=== PATIENT | male | born 1995 | race Hispanic/Latino ===

== ENCOUNTER 2024-03-22 03:04 | Emergency (ER) | payer MEDICARE, SELFPAY ==
[2024-03-22 03:07] VITALS: BP 166/105
[2024-03-22 03:32] VITALS: BMI 3808.9
--- NOTE | 2024-03-22 03:54 | ED.GENMED ---
History of Present Illness
<AUTUMN Cleaning - Last Filed: 03/22/24 06:21>
General
Chief Complaint: Extremity Pain (non-traumatic)
Source: patient
Exam Limitations: none
Time Seen by Provider: 03/22/24 03:24
Nursing documentation reviewed up to this point in time: agreed with
History of Present Illness
History of Present Illness:
Patient is a 29yo M w/ hx of back and shoulder arthritis who presents to the ED for hip pain x1 day. Reports waking up w/ hip pain yesterday which is unusual but pt did not think anything of it at first. He states pain got worse throughout the day.
He went to bed and woke up about an hour ago to pain radiating down arms and legs. Tried to get up and was unable to bear weight due to pain. Describes a constant deep soreness that is worse w/ movement. He states this pain is unlike anything he's
felt before. Has celebrex, tramadol, & nortriptyline for chronic pain which did not help this pain. 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 Follows w/ pain management. Denies any stiffness, numbness/tingling.
Admits to some recent constipation. Still having BM but feels like straining. Notes this is unusual since he has had loose bloody stool consistently since 14yo. States he was evaluated by GI and told it was hemorrhoids.
Review of Systems
<AUTUMN Cleaning - Last Filed: 03/22/24 06:21>
Review of Systems
Constitutional: Denies fever, fatigue or chills
Respiratory: Denies cough or trouble breathing
Cardiac: Denies chest pain or palpitations
ABD/GI: Reports constipated; Denies abdominal pain, nausea, vomiting or diarrhea
: Denies dysuria
Musculoskeletal: Reports joint pain and back pain
Neurological: Denies no symptoms, dizzy, headache or numbness
Phy Exam
<AUTUMN Cleaning - Last Filed: 03/22/24 06:21>
General Physical Exam
General Presentation: moderate distress
General age: appears stated age
General Skin: warm and dry
General Habitus: normal
General Mental: alert
Cardiovascular Exam
Cardiovascular Exam: regular rate/rhythm, no gallop and no murmur
Pulmonary Exam
Pulmonary Exam: lungs clear and no respiratory distress
Gastrointestinal Exam
Gastrointestinal Exam: normal bowel sounds, non tender, soft and non distended
Neurological Exam
Neurological Exam: alert, oriented x3, no motor deficits, no sensory deficits and speech normal
Musculoskeletal Exam
Musculoskeletal Exam: full ROM and other (very mild TTP of low back. Negative straight leg raise. 5/5 strength in B/L upper and lower extremities. Severe pain elicited when testing LE strength. )
Course
<Nikki Spaulding [facility] - Last Filed: 03/22/24 06:21>
Orders/Labs/Results
Orders:
Orders
03/22/24 04:08
C-Reactive Protein Urgent
Complete Blood Count/With Diff Urgent
Comprehensive Metabolic Panel Urgent
Lyme Progressive Urgent
Sed Rate [Erythrocyte Sed Rate] Urgent
03/22/24 05:27
Ketorolac [Toradol] 15 mg IV NOW STA
03/22/24 05:47
Bilat Hips, 3-4 view W/AP Pelvis [CR Hips FATIMAH w/wo Pel 3-4 Vw] Urgent
Comment:
Reason For Exam: pain
Include a pelvis x-ray?: Yes
03/22/24 06:19
Acetaminophen 1000MG/100Ml [Ofirmev] 1,000 mg in 100 ml IV ONCE
Acetaminophen IV Indication:: ED Narcotic Naive Pt-ONCE
03/22/24 06:49
Morphine Sulfate 4 mg IV NOW STA
Abnormal Lab Results
03/22/24
04:08
RBC 3.42 L 10^6/uL
(4.70-6.10)
Hgb 9.1 L g/dL
(13.0-18.0)
Hct 27.2 L %
(39.0-52.0)
MCV 79.5 L fL
(80.0-94.0)
MCH 26.6 L pg
(27.0-31.0)
MPV 10.6 H fL
(7.4-10.4)
Abs Immat Gran (auto) 0.2 H 10^3/uL
(0-0.05)
Absolute Monos (auto) 1.1 H 10^3/uL
(0.1-0.6)
Immature Gran % 1.9 H %
(0-0.5)
Monocytes % 11.4 H %
(1.7-9.3)
Chloride 109 H mmol/L
(98-107)
Carbon Dioxide 19 L mmol/L
(22-30)
BUN 26 H mg/dl
(9-20)
Glucose 111 H mg/dl
(70-99)
Total Bilirubin < 0.1 L mg/dl
(0.2-1.3)
Total Protein 6.2 L g/dl
(6.3-8.2)
03/22/24 04:08
03/22/24 04:08
Vital Signs
Initial and Last Documented VS:
Initial Vital Signs
Temp Pulse Resp BP Pulse Ox
98.1 F 104 20 166/105 99
03/22/24 03:07 03/22/24 03:07 03/22/24 03:07 03/22/24 03:07 03/22/24 03:07
Last Documented Vital Signs
Temp Pulse Resp BP Pulse Ox
98.1 F 94 21 141/90 99
03/22/24 03:07 03/22/24 06:30 03/22/24 06:30 03/22/24 06:00 03/22/24 03:07
<Marcos March, DO - Last Filed: 03/22/24 06:54>
Orders/Labs/Results
Orders:
Orders
03/22/24 04:08
C-Reactive Protein Urgent
Complete Blood Count/With Diff Urgent
Comprehensive Metabolic Panel Urgent
Lyme Progressive Urgent
Sed Rate [Erythrocyte Sed Rate] Urgent
03/22/24 05:27
Ketorolac [Toradol] 15 mg IV NOW STA
03/22/24 05:47
Bilat Hips, 3-4 view W/AP Pelvis [CR Hips FATIMAH w/wo Pel 3-4 Vw] Urgent
Comment:
Reason For Exam: pain
Include a pelvis x-ray?: Yes
03/22/24 06:19
Acetaminophen 1000MG/100Ml [Ofirmev] 1,000 mg in 100 ml IV ONCE
Acetaminophen IV Indication:: ED Narcotic Naive Pt-ONCE
03/22/24 06:49
Morphine Sulfate 4 mg IV NOW STA
Abnormal Lab Results
03/22/24
04:08
RBC 3.42 L 10^6/uL
(4.70-6.10)
Hgb 9.1 L g/dL
(13.0-18.0)
Hct 27.2 L %
(39.0-52.0)
MCV 79.5 L fL
(80.0-94.0)
MCH 26.6 L pg
(27.0-31.0)
MPV 10.6 H fL
(7.4-10.4)
Abs Immat Gran (auto) 0.2 H 10^3/uL
(0-0.05)
Absolute Monos (auto) 1.1 H 10^3/uL
(0.1-0.6)
Immature Gran % 1.9 H %
(0-0.5)
Monocytes % 11.4 H %
(1.7-9.3)
Chloride 109 H mmol/L
(98-107)
Carbon Dioxide 19 L mmol/L
(22-30)
BUN 26 H mg/dl
(9-20)
Glucose 111 H mg/dl
(70-99)
Total Bilirubin < 0.1 L mg/dl
(0.2-1.3)
Total Protein 6.2 L g/dl
(6.3-8.2)
03/22/24 04:08
03/22/24 04:08
Vital Signs
Initial and Last Documented VS:
Initial Vital Signs
Temp Pulse Resp BP Pulse Ox
98.1 F 104 20 166/105 99
03/22/24 03:07 03/22/24 03:07 03/22/24 03:07 03/22/24 03:07 03/22/24 03:07
Last Documented Vital Signs
Temp Pulse Resp BP Pulse Ox
98.1 F 94 21 141/90 99
03/22/24 03:07 03/22/24 06:30 03/22/24 06:30 03/22/24 06:00 03/22/24 03:07
<AUTUMN Cleaning - Last Filed: 03/22/24 06:21>
*Critical Care Note
Total Time (30-74mins, 75-104mins- exclusive of procedures): Not Applicable
<AUTUMN Cleaning - Last Filed: 03/22/24 06:21>
Update Note
Update Note:
03/22/2024 05:51 AM - Patient reports he was feeling better but pain is starting to return. No change in sxs.
ED Attending Note
<AUTUMN Cleaning - Last Filed: 03/22/24 06:21>
-
Portions of this chart may have been created with voice recognition software.� Occasional wrong word or��sound alike� substitutions may have occurred due to the inherent limitations of voice recognition software.
<Marcos March DO - Last Filed: 03/22/24 06:54>
ED Attending Note
Patient seen and examined by attending physician: Yes
I performed the substantive portion of visit, reviewed & personally made and approve the management plan that is documented in note by myself or SERAFIN.: Yes
ED Attending Note:
Pleasant 29-year-old male presents with pain in his hips. He states that the pain shoots down to his knees and he has pain in both shoulders. He does have a history of arthritis. He is seeing pain management for his chronic arthritis pain. He
has also had blood per rectum since age 14. He has seen GI and was told that it was 'hemorrhoids '. Denies any chest pain or shortness of breath. Reports no fever or chills. Patient has tried Celebrex, tramadol, nortriptyline for his chronic
pain. He was initially diagnosed with degenerative osteoarthritis. Patient states that the pain randomly comes and goes. He states that the pain is not reproduced with palpation. He states that it is present equally bilaterally.
03/22/2024 0651 AM: Patient states that Toradol and Affirmative did not work. He called in sick from school and wants a dose of morphine. His pain is not reproducible. There is no weakness. It is symmetrical anterior proximal thigh pain.
Patient to follow-up with rheumatology. Given that patient needed 3 pain medicines to get his pain under control I did offer him admission. Patient refused stated he wanted to take the morphine and go home. Patient to follow-up with rheumatology.
Discharge Plan
Departure
Patient Disposition: Home (Routine Discharge)
Date of Disposition: 03/22/24
Time of Disposition: 06:52
Patient with high blood pressure during this ER visit?: Yes
Condition: Good
Discharge Problem:
Bilateral hip pain
Instructions: Muscle and Bone Pain (DC), BLOOD PRESSURE
Prescriptions:
New
oxycodone-acetaminophen [Percocet] 5-325 mg tablet
1 tab PO Q6HPRN PRN (Reason: pain) Qty: 7 0RF
No Action
tramadol 50 mg Tablet
50 mg PO BID
celecoxib [Celebrex] 100 mg Capsule
100 mg PO BID PRN (Reason: shoulder pain)
nortriptyline 10 mg Capsule
10 mg PO HS
diphenhydramine HCl [Benadryl] 25 mg Capsule
25 mg PO HS PRN (Reason: insomnia)
Referrals:
Christin Miller MD [Active] - Next open appointment
NONE,* [Family Provider] -
Activity Restrictions/Additional Instructions:
It was a pleasure meeting you and taking part in your care. We hope for your continued healing and wellness.
Please read discharge instructions in their entirety. However, they are for general education and may not describe your exact diagnosis at discharge. Information on your ER visit and medical conditions were discussed with you along with appropriate
follow up information...
If indicated, please take your medications as instructed and indicated on discharge paperwork.
Please schedule a follow up appointment as directed. Call to schedule an appointment
Please return to the emergency department with ANY change in, persisting, or worsening of symptoms. If any of your symptoms do not improve, or persist, or become more severe within 6-12 hours, please return to the emergency department for further
care.
Please return to the emergency department if you develop a headache, neck pain/stiffness, fever greater than 100.4F, chest pain, shortness of breath, persistent nausea, vomiting, slurred speech, difficulty walking, numbness/tingling, weakness, signs
of infection or any other symptoms that are worrisome to you.
If you have any questions or concerns please do not hesitate to call the Hospital at or E-mail me directly at [email or web address]
Interventions
Interventions:
*Risk Screen - Suicide Last Done: 03/22/24 03:07
*General Assessment Last Done: 03/22/24 03:07
*Neglect/Abuse Screening Last Done: 03/22/24 03:07
ED- Fall Risk Assessment Last Done: 03/22/24 03:34
*ED COVID-19 Vaccine History Last Done: 03/22/24 03:07
ED-Musculoskeletal Assessment Last Done: 03/22/24 03:34
ED-Peripheral Vascular Assessment Last Done: 03/22/24 03:34
ED-Skin Assessment Last Done: 03/22/24 03:34
Discharge Date and Time
Print Language: SERBIAN
[2024-03-22 03:55] VITALS: BP 142/98
[2024-03-22 04:28] LABS: % Basophils 0.2 % (0-2); % Eosinophils 0.1 % (0-6); % Immature Granulocytes 1.9 % (0-0.5); % Lymphocytes 23.6 % (20.5-51.1); % Monocytes 11.4 % (1.7-9.3); % Neutrophils 62.8 % (42.2-75.2); Absolute Immature Granulocytes 0.2 10^3/uL (0-0.05); Absolute Lymphocytes 2.2 10^3/uL (1.2-3.4); Absolute Monocytes 1.1 10^3/uL (0.1-0.6); Absolute Neutrophils 5.9 10^3/uL (1.4-6.5); Hematocrit 27.2 % (39.0-52.0); Hemoglobin 9.1 g/dL (13.0-18.0); Mean Corp Hgb Conc. 33.5 g/dL (33.0-37.0); Mean Corpuscular Hgb 26.6 pg (27.0-31.0); Mean Corpuscular Volume 79.5 fL (80.0-94.0); Mean Platelet Volume 10.6 fL (7.4-10.4); Nucleated Red Blood Cells % 0.2 % (-); Platelet Count 294 10^3/uL (130-400); Red Blood Cell Count 3.42 10^6/uL (4.70-6.10); Red Cell Dist. Width 13.6 % (11.5-14.5); White Blood Cell Count 9.5 10^3/uL (4.8-10.8)
[2024-03-22 04:48] LABS: C-Reactive Protein < 5.00 mg/L (0.0-10.00)
[2024-03-22 04:49] LABS: ALT (SGPT) 25 U/L (0-50); AST (SGOT) 18 U/L (17-59); Albumin 3.8 g/dl (3.5-5.0); Alkaline Phosphatase 58 U/L (38-126); Blood Urea Nitrogen 26 mg/dl (9-20); Calcium 8.9 mg/dl (8.4-10.2); Carbon Dioxide 19 mmol/L (22-30); Chloride 109 mmol/L (98-107); Estimated Creatinine Clearance -16 ml/min; Glucose 111 mg/dl (70-99); Potassium 4.3 mmol/L (3.5-5.1); Sodium 139 mmol/L (135-145); Total Bilirubin < 0.1 mg/dl (0.2-1.3); Total Protein 6.2 g/dl (6.3-8.2); eGFR > 60.00
[2024-03-22 05:00] VITALS: BP 141/85
[2024-03-22] MEDS: TORADOL 15 MG IV (05:32)
[2024-03-22 06:00] VITALS: BP 141/90
[2024-03-22 06:17] LABS: Erythrocyte Sed Rate 17 mm/hour (0-20)
[2024-03-22] MEDS: OFIRMEV 100 IV (06:24)
[2024-03-22 06:58] VITALS: BP 157/88
[2024-03-22] MEDS: MORPHINE SULFATE 4 MG IV (06:59)
[2024-03-23 11:43] LABS: Lyme Antibody Screen, EIA Negative (Negative)
== END 2024-03-22 07:17 | disposition home or self-care (01) ==
LOC: EMR 03:04
PROVIDERS: EMERGENCY PHYSICIAN Student in an Organized Health Care Education/Training Program
DX: M25.552 Pain in left hip (principal); M25.551 Pain in right hip; G89.29 Other chronic pain; Z79.899 Other long term (current) drug therapy
CPT/HCPCS: 96374; 96375; 99284; 73522; 80053; 85025; 85652; 86140; 86618